=== PATIENT | male | born 2000 | race Caucasian/White ===

== ENCOUNTER 2022-05-18 21:21 | Emergency (ER) | payer SELFPAY ==
[~2022-05-18] VITALS: Ht 170.2 cm; Wt 77.1 kg
--- NOTE | 2022-05-18 21:23 | NUR ---
[facility] BED 1
--- NOTE | 2022-05-18 21:23 | NUR ---
[facility]IBA TO BED #1
[2022-05-18 21:27] VITALS: BP 120/71
--- NOTE | 2022-05-18 21:39 | NUR ---
Patient resting in bed, A/Ox4, chest rise and fall symmetrical, no c/o pain or s/s of distress, patient on monitor
[2022-05-18] MEDS ORDERED: NACL 0.9% 2,000 ML IV ONE (22:55)
--- NOTE | 2022-05-18 23:56 | NUR ---
Patient resting in bed, A/Ox4 but confused, chest rise and fall symmetrical, no c/o pain or s/s of distress, patient on monitor
[2022-05-19 00:46] VITALS: BP 110/68
--- NOTE | 2022-05-19 00:47 | NUR ---
Patient discharged with v/s stable. Written and verbal after care instructions given and explained. Patient verbalized understanding. Ambulatory with steady gait. All questions addressed prior to discharge. Advised to follow up with PMD.
== END 2022-05-19 00:50 | disposition home or self-care (01) ==
LOC: MED 21:21
DX: F11.129 Opioid abuse with intoxication, unspecified (principal)
CPT/HCPCS: 96360; 99283; J7030